=== PATIENT | female | born 1990 | race Caucasian/White ===

== ENCOUNTER 2023-02-19 14:58 | Inpatient (IN) | payer OTHER ==
[~2023-02-19] VITALS: Ht 154.9 cm; Wt 134.0 kg
[2023-02-19] MEDS ORDERED: CLON0.5T2 PO (15:15)
[2023-02-19] MEDS ORDERED: BUPR150T12 PO (15:15)
[2023-02-19] MEDS ORDERED: BOOSTRIX VACCINE (TETANUS/DIPHTH/ACEL. PERTUSSIS) 0.5ML SYR IM.IMMUN ONE (15:15)
[2023-02-19] MEDS ORDERED: OMEP40CA5 PO (15:15)
[2023-02-19] MEDS ORDERED: FLUO10CA18 PO (15:15)
[2023-02-19] MEDS: MORPHINE 4 MG/ML 1ML VIAL IV PRN ×4 (15:33→23:23)
[2023-02-19 15:42] LABS: BASO % 0.2 % (0.0-1.0); EOS # 0.1 10^3/uL (0.0-0.5); EOS % 0.6 % (0.0-3.0); HEMATOCRIT 39.9 % (36.0-47.0); LYMPH % 17.2 % (24.0-44.0); MEAN CORPUSCULAR HGB CONC 32.6 g/dl (32.0-36.5); MONO # 0.9 10^3/uL (0.0-0.8); MONO % 5.1 % (2.0-8.0); NEUTROPHILS # 13.4 10^3/uL (1.5-8.5); NEUTROPHILS % 76.4 % (36.0-66.0); PLATELET COUNT, AUTOMATED 274 10^3/uL (150-450); RED BLOOD COUNT 4.64 10^6/uL (4.00-5.40); WHITE BLOOD COUNT 17.5 10^3/uL (4.0-10.0)
[2023-02-19] MEDS ORDERED: ISOVUE-370 76% 100ML VIAL As Ordered ONE (15:46)
[2023-02-19] MEDS ORDERED: ONDA4TAB6 PO (18:25)
[2023-02-19] MEDS ORDERED: oxyCODONE 5MG TAB PO PRN (18:30)
[2023-02-19] MEDS ORDERED: MEPERIDINE 25 MG/ML 1ML VIAL IV PRN (18:30)
[2023-02-19] MEDS ORDERED: HYDROMORPHONE HCL 0.5 MG/ 0.5 ML SYRINGE IV PRN (18:30)
[2023-02-19] MEDS ORDERED: HOME MED LIST COMPLETE! XX SCH (18:30)
[2023-02-19] MEDS ORDERED: fentaNYL 100 MCG/2 ML INJECTION IV PRN (18:30)
[2023-02-19] MEDS ORDERED: ONDANSETRON 4MG 2ML VIAL IV PRN (18:30)
[2023-02-19 18:44] LABS: RSV AMPLIFICATION NEGATIVE (NEGATIVE)
[2023-02-19] MEDS ORDERED: ROPIvacaine 0.5% 30ML VIAL PN ONE (19:00)
[2023-02-19] MEDS ORDERED: MORPHINE 4 MG/ML 1ML VIAL As Ordered ONE (19:52)
[2023-02-19] MEDS ORDERED: clonazePAM 0.5 MG TAB PO PRN (19:55)
[2023-02-19] MEDS ORDERED: NORCO, ANEXSIA 5/325MG TABLET (HYDROcodone/ACETAMINOPHEN) PO PRN (20:10)
[2023-02-19] MEDS: SENOKOT S TAB PO SCH (21:00)
[2023-02-19] MEDS: MIDAZOLAM INJ 2MG/2ML VIAL IV PRN (23:55)
[2023-02-19] MEDS: fentaNYL 100 MCG/2 ML INJECTION IV PRN (23:55)
[2023-02-20] MEDS: fentaNYL 100 MCG/2 ML INJECTION IV PRN (00:02)
[2023-02-20] MEDS: MIDAZOLAM INJ 2MG/2ML VIAL IV PRN (00:02)
[2023-02-20 01:35] VITALS: BP 147/79
[2023-02-20] MEDS: NORCO, ANEXSIA 5/325MG TABLET (HYDROcodone/ACETAMINOPHEN) PO PRN ×2 (01:40→18:05)
[2023-02-20 05:31] VITALS: BP 136/79
[2023-02-20] MEDS: ACETAMINOPHEN TAB 650MG DOSE (2X325MG) PO PRN (05:40)
[2023-02-20] MEDS: HEPARIN SOD (PORCINE) 5000UNITS/ML 1ML VIAL/SYRINGE SQ SCH ×3 (09:00→20:52)
[2023-02-20] MEDS: KETOROLAC 30 MG/ML 1ML VIAL IV PRN ×2 (09:01→22:52)
[2023-02-20] MEDS: SENOKOT S TAB PO SCH ×2 (09:02→20:52)
[2023-02-20] MEDS: buPROPion **XL** TABLET 150MG (WELLBUTRIN XL) PO SCH (09:02)
[2023-02-20] MEDS: FLUoxetine 10 MG CAP PO SCH (09:02)
[2023-02-20] MEDS: OMEPRAZOLE 20MG CAP PO SCH (09:02)
[2023-02-20 14:00] VITALS: BP 134/81
[2023-02-20 20:00] VITALS: BP 136/82
[2023-02-21] MEDS ORDERED: KETOROLAC 30 MG/ML 1ML VIAL IV PRN (03:00)
[2023-02-21] MEDS: NORCO, ANEXSIA 5/325MG TABLET (HYDROcodone/ACETAMINOPHEN) PO PRN ×3 (05:05→17:58)
[2023-02-21 06:22] VITALS: BP 118/80
[2023-02-21] MEDS: SENOKOT S TAB PO SCH ×2 (08:47→20:06)
[2023-02-21] MEDS: FLUoxetine 10 MG CAP PO SCH (08:47)
[2023-02-21] MEDS: OMEPRAZOLE 20MG CAP PO SCH (08:47)
[2023-02-21] MEDS: buPROPion **XL** TABLET 150MG (WELLBUTRIN XL) PO SCH (08:47)
[2023-02-21] MEDS: HEPARIN SOD (PORCINE) 5000UNITS/ML 1ML VIAL/SYRINGE SQ SCH ×3 (08:48→20:07)
[2023-02-21 14:00] VITALS: BP 113/78
[2023-02-21 20:04] VITALS: BP 115/77
[2023-02-22] MEDS: NORCO, ANEXSIA 5/325MG TABLET (HYDROcodone/ACETAMINOPHEN) PO PRN ×3 (00:18→22:58)
[2023-02-22 05:05] VITALS: BP 113/76
[2023-02-22 06:37] LABS: HEMATOCRIT 38.9 % (36.0-47.0); HEMOGLOBIN 12.5 g/dl (12.0-15.5); MEAN CORPUSCULAR HEMOGLOBIN 28.4 pg (27.0-33.0); MEAN CORPUSCULAR HGB CONC 32.1 g/dl (32.0-36.5); MEAN CORPUSCULAR VOLUME 88.4 fl (80.0-96.0); PLATELET COUNT, AUTOMATED 243 10^3/uL (150-450); WHITE BLOOD COUNT 7.9 10^3/uL (4.0-10.0)
[2023-02-22] MEDS: FLUoxetine 10 MG CAP PO SCH (09:28)
[2023-02-22] MEDS: buPROPion **XL** TABLET 150MG (WELLBUTRIN XL) PO SCH (09:28)
[2023-02-22] MEDS: SENOKOT S TAB PO SCH ×2 (09:29→22:09)
[2023-02-22] MEDS: OMEPRAZOLE 20MG CAP PO SCH (09:29)
[2023-02-22] MEDS: HEPARIN SOD (PORCINE) 5000UNITS/ML 1ML VIAL/SYRINGE SQ SCH ×3 (09:29→22:09)
[2023-02-22 09:56] LABS: INR 0.93; PROTHROMBIN TIME 12.7 SECONDS (12.5-14.5)
[2023-02-22 09:57] LABS: PARTIAL THROMBOPLASTIN TIME 27.2 SECONDS (24.8-34.2)
[2023-02-22 10:16] LABS: COLLAGEN EPINEPHRINE 94 SECONDS (74-162)
[2023-02-22] MEDS: KETOROLAC 30 MG/ML 1ML VIAL IV PRN (12:26)
[2023-02-22 14:00] VITALS: BP 138/94
[2023-02-22 21:28] VITALS: BP 110/75
[2023-02-23 05:33] VITALS: BP 122/83
[2023-02-23] MEDS: buPROPion **XL** TABLET 150MG (WELLBUTRIN XL) PO SCH (09:00)
[2023-02-23] MEDS: FLUoxetine 10 MG CAP PO SCH (09:00)
[2023-02-23] MEDS: OMEPRAZOLE 20MG CAP PO SCH (09:00)
[2023-02-23] MEDS: SENOKOT S TAB PO SCH (09:00)
[2023-02-23] MEDS: HEPARIN SOD (PORCINE) 5000UNITS/ML 1ML VIAL/SYRINGE SQ SCH (09:01)
[2023-02-23] MEDS: NORCO, ANEXSIA 5/325MG TABLET (HYDROcodone/ACETAMINOPHEN) PO PRN (09:13)
[2023-02-23] MEDS ORDERED: OXYC1TAB23 PO (10:07)
[2023-02-23] MEDS: ACETAMINOPHEN TAB 650MG DOSE (2X325MG) PO PRN (14:10)
[2023-02-23] MEDS ORDERED: propofoL 200 MG/20 ML VIAL ONE (14:49)
== END 2023-02-23 14:50 | disposition home or self-care (01) | DRG 930 ==
LOC: EDBD 14:58 → M ED 14:58 → M ED INP 20:08 → M MS5PR 02-20 01:35
PROVIDERS: ADMIT Surgery; ATTEND Internal Medicine
PROC: 0SSBXZZ Reposition Left Hip Joint, External Approach (ICD-10-PCS; principal; 2023-02-20)
DX: S32.402A Unspecified fracture of left acetabulum, initial encounter for closed fracture (principal); S27.0XXA Traumatic pneumothorax, initial encounter; I10 Essential (primary) hypertension; S22.32XA Fracture of one rib, left side, initial encounter for closed fracture; S92.141A Displaced dome fracture of right talus, initial encounter for closed fracture; S82.201A Unspecified fracture of shaft of right tibia, initial encounter for closed fracture; S73.012A Posterior subluxation of left hip, initial encounter; F32.A Depression, unspecified; K21.9 Gastro-esophageal reflux disease without esophagitis; Z79.899 Other long term (current) drug therapy; Z88.2 Allergy status to sulfonamides; Z88.6 Allergy status to analgesic agent; Z98.84 Bariatric surgery status; Z91.018 Allergy to other foods; V47.6XXA Car passenger injured in collision with fixed or stationary object in traffic accident, initial encounter; Y92.410 Unspecified street and highway as the place of occurrence of the external cause; Y93.89 Activity, other specified; Y99.8 Other external cause status